=== PATIENT | female | born 1955 | race Caucasian/White ===

== ENCOUNTER 2018-12-03 10:57 | Inpatient (IN) | payer OTHER ==
[2018-12-03] MEDS ORDERED: KETOROLAC 60 MG/2 ML VIAL IM STA (11:26)
--- NOTE | 2018-12-03 11:37 | ED ---
General Adult HPI - General Chief complaint: Fall Stated complaint: FALL, RT ELBOW/SHOULDER INJURY Time Seen by Provider: 12/03/18 11:00 Source: patient, RN notes reviewed Mode of arrival: wheelchair Limitations: no limitations - History of Present Illness Initial comments: This is a 63-year-old female presents emergency Department complaining of right posterior thoracic pain as well as right elbow and shoulder pain. Patient states she was on one step of a stepladder when she was trying to get on the counter she fell from stepladder onto her back. Patient denies hitting her head denies any headache denies any neck injury patient denies any numbness or weakness. Patient states the posterior thoracic pain is worse with deep breathing or twisting. Patient states she has full range of motion of her elbow but it does hurt on the lateral aspect. Patient states the lateral aspect of her humerus also hurts. Patient denies any abdominal pain. Patient denies any lower extremity pain. Patient denies any pain to the left extremity. - Related Data Home Medications Medication Instructions Recorded Confirmed Albuterol Inhaler [Ventolin Hfa 2 puff INHALATION RT-Q8H 12/03/18 12/03/18 Inhaler] Budesonide/Formoterol Fumarate 2 puff INHALATION RT-BID 12/03/18 12/03/18 [Symbicort 160-4.5 Mcg Inhaler] Lisinopril-Hctz 20-25 mg 1 tab PO DAILY 12/03/18 12/03/18 [Zestoretic 20-25] Sertraline [Zoloft] 25 mg PO DAILY 12/03/18 12/03/18 Allergies Allergy/AdvReac Type Severity Reaction Status Date / Time theophylline Allergy Severe headache Verified 12/03/18 11:21 Review of Systems ROS Statement: Those systems with pertinent positive or pertinent negative responses have been documented in the HPI. ROS Other: All systems not noted in ROS Statement are negative. Past Medical History Past Medical History: Asthma, Hypertension History of Any Multi-Drug Resistant Organisms: None Reported Past Surgical History: No Surgical Hx Reported Past Psychological History: Depression Smoking Status: Never smoker Past Alcohol Use History: Rare Past Drug Use History: None Reported General Exam - General Exam Comments Initial Comments: GENERAL: Patient is well-developed and well-nourished. Patient is nontoxic and well- hydrated and is in mild distress. ENT: Neck is soft and supple. No significant lymphadenopathy is noted. Oropharynx is clear. Moist mucous membranes. Neck has full range of motion without eliciting any pain. Patient has no palpable neck tenderness EYES: The sclera were anicteric and conjunctiva were pink and moist. Extraocular movements were intact and pupils were equal round and reactive to light. Eyelids were unremarkable. PULMONARY: Unlabored respirations. Good breath sounds bilaterally. No audible rales rhonchi or wheezing was noted. CARDIOVASCULAR: There is a regular rate and rhythm without any murmurs gallops or rubs. Femoral pulses are equal bilaterally ABDOMEN: Soft and nontender with normal bowel sounds. No palpable organomegaly was noted. There is no palpable pulsatile mass. SKIN: Skin is clear with no lesions or rashes and otherwise unremarkable. NEUROLOGIC: Patient is alert and oriented x3. Cranial nerves II through XII are grossly intact. Motor and sensory are also intact. Normal speech, volume and content. Symmetrical smile. MUSCULOSKELETAL: Patient has pain on the lateral aspect of the elbow and shoulder patient also has palpable pain of the posterior thoracic region just below the scapula. LYMPHATICS: No significant lymphadenopathy is noted PSYCHIATRIC: Normal psychiatric evaluation. Limitations: no limitations Course Vital Signs 12/03/18 11:00 Temperature 97.8 F Pulse Rate 67 Respiratory 18 Rate Blood Pressure 113/65 O2 Sat by Pulse 98 Oximetry Procedures - Chest Tube Insertion Consent Obtained: verbal consent Side of Procedure: right Placed on monitor/pulse oximetry: Yes Local Anesthesia: Lidocaine 1% (Serevent) Insertion Site: Midaxillary Scalpel: #11 Open into Pleural Space Using: Other (Serevent trocar) Sutured in Place: No Attached to Suction: No Patient Tolerated Procedure: well Complications: Pain Medical Decision Making - Medical Decision Making Patient's x-ray of the elbow is negative. Patient's chest x-ray shows a pneumothorax about 20-30% with a posterior displaced rib fracture Shoulder x-ray shows no acute abnormality I spoke with Joseph Uriarte and he agreed that A for about would be sufficient in this case. I spoke with Dr. Mendoza he wanted the patient admitted with CT consult Disposition Clinical Impression: Pneumothorax, Rib fracture Disposition: ADMITTED IP TO THIS HOSP Referrals: Neela Stewart MD [Primary Care Provider] - 1-2 days Time of Disposition: 16:12
--- NOTE | 2018-12-03 12:47 | XR ---
EXAMINATION TYPE: XR ribs RT w pa chest xray , 5 VIEWS DATE OF EXAM ORDERED: 12/03/2018 HISTORY: Pain. COMPARISON: None. FINDINGS: Heart size upper limits of normal. The lungs are clear. Pleural spaces are clear. There is a moderately displaced fracture the posterior aspect of the fifth rib. There is a slight contour abn ormality the sixth rib but a definite cortical break is not seen. IMPRESSION: 1. BORDERLINE CARDIOMEGALY. 2. MODERATELY DISPLACED FRACTURE OF THE RIGHT FIFTH RIB.
--- NOTE | 2018-12-03 12:49 | XR ---
EXAMINATION TYPE: XR shoulder complete RT , 3 VIEWS DATE OF EXAM ORDERED: 12/03/2018 HISTORY: Pain. COMPARISON: None. FINDINGS: There are mild degenerative changes in the right AC joint. There is a moderately displaced fracture the right fifth rib posteriorly. There is also slightly contracted abnormality of the fourt h rib but a definite cortical fracture is not seen. IMPRESSION: 1. NO ACUTE FRACTURE OR DISLOCATION ABOUT THE SHOULDER. 2. MILD DEGENERATIVE CHANGE. 3. RIGHT FIFTH RIB FRACTURE.
--- NOTE | 2018-12-03 12:50 | XR ---
EXAMINATION TYPE: XR elbow complete RT , 3 VIEWS DATE OF EXAM ORDERED: 12/03/2018 HISTORY: Pain. COMPARISON: None. FINDINGS: No fracture, dislocation or elbow joint effusion is seen. IMPRESSION: NO ACUTE OSSEOUS LESION.
[2018-12-03] MEDS ORDERED: HYDROmorphone 1 MG/ML 1 ML SYRINGE IM STA (13:38)
[2018-12-03] MEDS ORDERED: ONDANSETRON ODT 4 MG TAB PO STA (13:38)
[2018-12-03] MEDS ORDERED: HYDROmorphone 1 MG/ML 1 ML SYRINGE IVP STA (13:56)
[2018-12-03] MEDS ORDERED: ONDANSETRON 4 MG/2 ML VIAL IVP STA ×2 (13:56→16:49)
[2018-12-03] MEDS ORDERED: LIDOCAINE 1% INJ 10MG/ML (20 ML MDV) SQ ONE (13:57)
[2018-12-03] MEDS ORDERED: SODIUM CHLORIDE 0.9% 1,000 ML IV ONE (16:47)
[2018-12-03] MEDS ORDERED: HYDROmorphone 0.5 MG/0.5 ML SYRINGE IVP PRN (16:49)
--- NOTE | 2018-12-03 16:56 | XR ---
EXAMINATION TYPE: XR chest 1V portable DATE OF EXAM: 12/03/2018 COMPARISON: NONE HISTORY: Asthma TECHNIQUE: Single frontal view of the chest is obtained. FINDINGS: Heart and mediastinum are normal. Lungs are clear. Diaphragm is normal. There is right-faina ed chest tube. There is probably a tiny right apical pneumothorax. IMPRESSION: Small right apical pneumothorax decreased compared to exam earlier today. Normal heart.
[2018-12-03 19:18] LABS: Basophils # (A) 0.1 k/uL (0-0.2); Basophils % (A) 0 %; Eosinophils # (A) 0.1 k/uL (0-0.7); Eosinophils % (A) 1 %; HCT 47.1 % (34.0-46.0); HGB 15.2 gm/dL (11.4-16.0); Lymphocytes # (A) 0.8 k/uL (1.0-4.8); Lymphocytes % (A) 5 %; MCH 28.8 pg (25.0-35.0); MCHC 32.2 g/dL (31.0-37.0); MCV 89.4 fL (80.0-100.0); Mean Platelet Volume 8.7; Monocytes # (A) 0.6 k/uL (0-1.0); Monocytes % (A) 3 %; Neutrophils # (A) 16.6 k/uL (1.3-7.7); Neutrophils % (A) 91 %; Platelet Count 358 k/uL (150-450); RBC 5.27 m/uL (3.80-5.40); RDW 13.6 % (11.5-15.5); WBC 18.2 k/uL (3.8-10.6)
[2018-12-03 19:28] LABS: ALT 36 U/L (9-52); AST 30 U/L (14-36); Albumin 4.7 g/dL (3.5-5.0); Alkaline Phosphatase 77 U/L (38-126); Anion Gap 10 mmol/L; Blood Urea Nitrogen 23 mg/dL (7-17); Calcium 10.3 mg/dL (8.4-10.2); Carbon Dioxide 28 mmol/L (22-30); Chloride 104 mmol/L (98-107); Glucose 96 mg/dL (74-99); Potassium 4.3 mmol/L (3.5-5.1); Sodium 142 mmol/L (137-145); Total Bilirubin 0.6 mg/dL (0.2-1.3); Total Protein 7.7 g/dL (6.3-8.2)
[2018-12-03] MEDS: HYDROcodone/APAP 5-325MG 1 EACH TAB PO PRN (20:00)
[2018-12-03] MEDS: SYMBICORT 160-4.5 MCG INHALER INHALATION SCH (21:27)
[2018-12-03] MEDS ORDERED: ALBUTEROL NEBULIZED 2.5 MG/3 ML INHALATION PRN (22:30)
[2018-12-03] MEDS: LIDOCAINE 5% PATCH TOPICAL SCH (23:29)
[2018-12-03] MEDS: HEPARIN SODIUM,PORCINE 5,000 UNIT/ML 1 ML VIAL SQ SCH (23:29)
[2018-12-04] MEDS ORDERED: ALBUTEROL NEBULIZED 2.5 MG/3 ML INHALATION SCH
[2018-12-04] MEDS: HYDROcodone/APAP 5-325MG 1 EACH TAB PO PRN ×2 (03:44→11:00)
[2018-12-04] MEDS: ALBUTEROL NEBULIZED 2.5 MG/3 ML INHALATION SCH ×3 (07:47→19:41)
[2018-12-04] MEDS: SYMBICORT 160-4.5 MCG INHALER INHALATION SCH ×2 (07:47→19:41)
--- NOTE | 2018-12-04 08:23 | XR ---
EXAMINATION TYPE: XR chest 1V portable DATE OF EXAM: 12/04/2018 HISTORY: Right pneumothorax. REFERENCE: Previous study dated 12/03/2018. FINDINGS: A right pleural drain remains in place. There continues to be a small, apical pneumothorax on the right. There is a small amount of subcutaneous emphysema on the right. Lungs otherwise clear. Pleural spaces are clear. The heart is mildly prominent. IMPRESSION: SMALL, RESIDUAL RIGHT APICAL PNEUMOTHORAX. THIS IS APPROXIMATELY 10% BY VOLUME.
[2018-12-04] MEDS: SERTRALINE 25 MG TAB PO SCH (08:33)
[2018-12-04] MEDS: LISINOPRIL-HCTZ 20-25 MG 1 EACH TAB PO SCH (08:33)
[2018-12-04] MEDS: HEPARIN SODIUM,PORCINE 5,000 UNIT/ML 1 ML VIAL SQ SCH ×3 (08:33→23:51)
--- NOTE | 2018-12-04 09:34 | P.GSHP ---
History of Present Illness H&P Date: 12/04/18 63-year-old female presented to the emergency department with right-sided chest pain after a recent fall. The patient states that she was painting in her house and was attempting to step on a step stool and fell backwards onto her right side and right arm. She states that due to the severe pain, she presented to the emergency department. She denied any loss of consciousness and denies hitting her head. Other than the right chest and right elbow, she also complained of right shoulder pain. She also complained of some shortness of breath. She denied any abdominal pain. She denied any pain to the lower extremities. She was ambulating well after her fall. On workup in the emergency department, the patient was found to have a right-sided pneumothorax with no obvious fracture of the right shoulder or elbow. The emergency department physician did consult with cardiothoracic surgery and plan was for placement of ThoraVent that was placed by the emergency room physician. Repeat chest x-ray after placement did reveal some resolution of the pneumothorax with a small residual apical pneumothorax. Currently, the patient states her elbow pain is improving and she is able to move her upper extremity without a significant amount of pain. She states that her shortness of breath has i mproved. She has no additional complaints at this time. - Review of Systems All systems: negative Past Medical History Past Medical History: Asthma, Hypertension History of Any Multi-Drug Resistant Organisms: None Reported Past Surgical History: No Surgical Hx Reported Past Psychological History: Depression Smoking Status: Never smoker Past Alcohol Use History: Rare Past Drug Use History: None Reported - Past Family History Father Family Medical History: Hypertension Medications and Allergies Home Medications Medication Instructions Recorded Confirmed Type Albuterol Inhaler [Ventolin Hfa 2 puff INHALATION RT-Q8H 12/03/18 12/03/18 History Inhaler] Budesonide/Formoterol Fumarate 2 puff INHALATION RT-BID 12/03/18 12/03/18 History [Symbicort 160-4.5 Mcg Inhaler] Lisinopril-Hctz 20-25 mg 1 tab PO DAILY 12/03/18 12/03/18 History [Zestoretic 20-25] Sertraline [Zoloft] 25 mg PO DAILY 12/03/18 12/03/18 History Allergies Allergy/AdvReac Type Severity Reaction Status Date / Time theophylline Allergy Severe headache Verified 12/03/18 11:21 Surgical - Exam Osteopathic Statement: *. No significant issues noted on an osteopathic structural exam other than those noted in the History and Physical/Consult. Vital Signs Temp Pulse Resp BP Pulse Ox 97.8 F 67 18 113/65 98 12/03/18 11:00 12/03/18 11:00 12/03/18 11:00 12/03/18 11:00 12/03/18 11:00 - General well nourished, no distress - Eyes PERRL, normal ocular movement - ENT normal pinna, normal nares, normal mucosa, no hearing loss - Neck no masses, trachea midline, no lymphadectomy - Respiratory normal expansion, normal respiratory effort, clear to auscultation - Cardiovascular Rhythm: regular Heart Sounds: normal: S1, S2 - Abdomen Abdomen: soft, non tender, no guarding, no rigid, no rebound, no distended - Integumentary no rash, no growths - Neurologic normal coordination, normal sensation - Musculoskeletal normal gait - Psychiatric oriented to time, oriented to person, oriented to place, speech is normal Results - Labs 12/03/18 14:06 12/03/18 14:06 Abnormal Lab Results - Last 24 Hours (Table) 12/03/18 12/03/18 Range/Units 14:06 14:06 WBC 18.2 H (3.8-10.6) k/uL Hct 47.1 H (34.0-46.0) % Neutrophils # 16.6 H (1.3-7.7) k/uL Lymphocytes # 0.8 L (1.0-4.8) k/uL BUN 23 H (7-17) mg/dL Calcium 10.3 H (8.4-10.2) mg/dL Diabetes panel 12/03/18 Range/Units 14:06 Sodium 142 (137-145) mmol/L Potassium 4.3 (3.5-5.1) mmol/L Chloride 104 (98-107) mmol/L Carbon Dioxide 28 (22-30) mmol/L BUN 23 H (7-17) mg/dL Creatinine 0.71 (0.52-1.04) mg/dL Glucose 96 (74-99) mg/dL Calcium 10.3 H (8.4-10.2) mg/dL AST 30 (14-36) U/L ALT 36 (9-52) U/L Alkaline Phosphatase 77 (38-126) U/L Total Protein 7.7 (6.3-8.2) g/dL Albumin 4.7 (3.5-5.0) g/dL Calcium panel 12/03/18 Range/Units 14:06 Calcium 10.3 H (8.4-10.2) mg/dL Albumin 4.7 (3.5-5.0) g/dL Pituitary panel 12/03/18 Range/Units 14:06 Sodium 142 (137-145) mmol/L Potassium 4.3 (3.5-5.1) mmol/L Chloride 104 (98-107) mmol/L Carbon Dioxide 28 (22-30) mmol/L BUN 23 H (7-17) mg/dL Creatinine 0.71 (0.52-1.04) mg/dL Glucose 96 (74-99) mg/dL Calcium 10.3 H (8.4-10.2) mg/dL Adrenal panel 12/03/18 Range/Units 14:06 Sodium 142 (137-145) mmol/L Potassium 4.3 (3.5-5.1) mmol/L Chloride 104 (98-107) mmol/L Carbon Dioxide 28 (22-30) mmol/L BUN 23 H (7-17) mg/dL Creatinine 0.71 (0.52-1.04) mg/dL Glucose 96 (74-99) mg/dL Calcium 10.3 H (8.4-10.2) mg/dL Total Bilirubin 0.6 (0.2-1.3) mg/dL AST 30 (14-36) U/L ALT 36 (9-52) U/L Alkaline Phosphatase 77 (38-126) U/L Total Protein 7.7 (6.3-8.2) g/dL Albumin 4.7 (3.5-5.0) g/dL Assessment and Plan (1) Pneumothorax Narrative/Plan: Cardiothoracic surgery consult has been placed. Thoravent is in place and does have a notable air leak this morning. Recommendations for further management of pneumothorax per cardiothoracic surgery. Continue incentive spirometry. Current Visit: Yes Status: Acute Code(s): J93.9 - PNEUMOTHORAX, UNSPECIFIED SNOMED Code(s): 49275255 (2) Rib fracture Narrative/Plan: Pain control with narcotics, Toradol, Robaxin, Lidoderm patch. I will place a consult to anesthesia for possible nerve block. Continue incentive spirometry. Current Visit: Yes Status: Acute Code(s): S22.39XA - FRACTURE OF ONE RIB, UNSP SIDE, INIT FOR CLOS FX SNOMED Code(s): 12481195
[2018-12-04] MEDS: KETOROLAC 30 MG/ML 1 ML VIAL IVP SCH ×3 (12:51→23:51)
[2018-12-04] MEDS: METHOCARBAMOL 500 MG TAB PO SCH ×3 (12:52→21:16)
--- NOTE | 2018-12-04 14:09 | P.GSCN ---
History of Present Illness Consult date: 12/04/18 Reason for Consult: Status post fall from standing with trauma to her right chest and subsequent right pneumothorax. Requesting physician: Duane Chavarria History of present illness: This is a 71-year-old female patient who is followed by Dr. Neela Stewart on an outpatient basis. She has a past medical history significant for asthma, hypertension and depression. Yesterday while attempting to paint her kitchen, she stepped up on a step stool and proceeded to stand on her kitchen counter when she slipped off of the kitchen counter and fell backwards hitting her right side and right elbow. She was able to sit up and use her phone to call 911. She denies any head trauma, loss of consciousness loss of bowel or bladder function, although she reports she did have some complaints of shortness of breath, pain to her right side and back and nausea after the fall. Subsequently, she presented to the emergency department here at [facility] via EMS. An x-ray of her right arm was completed which demonstrated no acute osseous lesion, and a chest x-ray was completed which showed borderline cardiomegaly, moderately displaced fracture of the right fifth rib and a 15-20% right pneumothorax. Due to the right pneumothorax emergency room physician Dr. Chavarria placed a right Thoravent chest tube. Post-Thoravent placement a repeat chest x-ray was completed which demonstrate some resolution of the pneumothorax with a residual small right apical pneumothorax. Due to the patient's right pneumothorax a consult was placed to Dr. Kevin Harvey from cardiothoracic surgery for further evaluation and recommendations. Currently the patient is sitting up to the bedside chair. She remains complaining of some pain to her right lateral chest and right elbow. She is in no acute distress. Currently she is on 1 L nasal cannula with oxygen saturations 97%. Right Thoravent chest tube remains in place with air leak present. She denies any complaints of shortness of breath. Her chest x-ray this morning continues to show a small residual right apical pneumothorax less than 10%. Review of Systems A 14 point review systems was completed and was negative except as mentioned in HPI Past Medical History Past Medical History: Asthma, Hypertension History of Any Multi-Drug Resistant Organisms: None Reported Additional Past Surgical History / Comment(s): History of endometrial ablation Past Psychological History: Depression Smoking Status: Never smoker Past Alcohol Use History: Rare Past Drug Use History: None Reported - Past Family History Father Family Medical History: Hypertension Additional Family Medical History / Comment(s): Parkinson's Mother Family Medical History: Respiratory Disorder (Pulmonary fibrosis) Medications and Allergies Home Medications Medication Instructions Recorded Confirmed Type Albuterol Inhaler [Ventolin Hfa 2 puff INHALATION RT-Q8H 12/03/18 12/03/18 History Inhaler] Budesonide/Formoterol Fumarate 2 puff INHALATION RT-BID 12/03/18 12/03/18 History [Symbicort 160-4.5 Mcg Inhaler] Lisinopril-Hctz 20-25 mg 1 tab PO DAILY 12/03/18 12/03/18 History [Zestoretic 20-25] Sertraline [Zoloft] 25 mg PO DAILY 12/03/18 12/03/18 History Allergies Allergy/AdvReac Type Severity Reaction Status Date / Time theophylline Allergy Severe headache Verified 12/03/18 11:21 Surgical - Exam Vital Signs Temp Pulse Resp BP Pulse Ox 97.8 F 67 18 113/65 98 12/03/18 11:00 12/03/18 11:00 12/03/18 11:00 12/03/18 11:00 12/03/18 11:00 - General well developed, well nourished, no distress, moderate pain (The right chest and right elbow), obese - Eyes PERRL, normal ocular movement - ENT normal pinna, normal nares, normal mucosa, no hearing loss, no congestion - Neck Neck is supple no lymphadenopathy. no masses, no bruits, trachea midline, no venous distension - Respiratory Essentially clear throughout, few scattered crackles to her bilateral bases. Respirations are symmetrical and nonlabored. Oxygen saturation are 97% on 1 L nasal cannula. - Cardiovascular Regular rhythm and rate. S1 and S2 present, negative for S3, gallop or murmur. No edema present. - Abdomen Abdomen is soft, nontender and nondistended. Active bowel sounds all 4 abdominal quadrants. No guarding or rigidity. No organomegaly. - Genitourinary Deferred - Rectum Deferred - Integumentary Ecchymosis and swelling to her right elbow. no rash, no growths - Neurologic normal coordination, normal sensation - Musculoskeletal normal gait, normal posture - Psychiatric oriented to time, oriented to person, oriented to place, speech is normal, memory intact Results - Labs 12/03/18 14:06 12/03/18 14:06 Abnormal Lab Results - Last 24 Hours (Table) 12/03/18 12/03/18 Range/Units 14:06 14:06 WBC 18.2 H (3.8-10.6) k/uL Hct 47.1 H (34.0-46.0) % Neutrophils # 16.6 H (1.3-7.7) k/uL Lymphocytes # 0.8 L (1.0-4.8) k/uL BUN 23 H (7-17) mg/dL Calcium 10.3 H (8.4-10.2) mg/dL Diabetes panel 12/03/18 Range/Units 14:06 Sodium 142 (137-145) mmol/L Potassium 4.3 (3.5-5.1) mmol/L Chloride 104 (98-107) mmol/L Carbon Dioxide 28 (22-30) mmol/L BUN 23 H (7-17) mg/dL Creatinine 0.71 (0.52-1.04) mg/dL Glucose 96 (74-99) mg/dL Calcium 10.3 H (8.4-10.2) mg/dL AST 30 (14-36) U/L ALT 36 (9-52) U/L Alkaline Phosphatase 77 (38-126) U/L Total Protein 7.7 (6.3-8.2) g/dL Albumin 4.7 (3.5-5.0) g/dL Calcium panel 12/03/18 Range/Units 14:06 Calcium 10.3 H (8.4-10.2) mg/dL Albumin 4.7 (3.5-5.0) g/dL Pituitary panel 12/03/18 Range/Units 14:06 Sodium 142 (137-145) mmol/L Potassium 4.3 (3.5-5.1) mmol/L Chloride 104 (98-107) mmol/L Carbon Dioxide 28 (22-30) mmol/L BUN 23 H (7-17) mg/dL Creatinine 0.71 (0.52-1.04) mg/dL Glucose 96 (74-99) mg/dL Calcium 10.3 H (8.4-10.2) mg/dL Adrenal panel 12/03/18 Range/Units 14:06 Sodium 142 (137-145) mmol/L Potassium 4.3 (3.5-5.1) mmol/L Chloride 104 (98-107) mmol/L Carbon Dioxide 28 (22-30) mmol/L BUN 23 H (7-17) mg/dL Creatinine 0.71 (0.52-1.04) mg/dL Glucose 96 (74-99) mg/dL Calcium 10.3 H (8.4-10.2) mg/dL Total Bilirubin 0.6 (0.2-1.3) mg/dL AST 30 (14-36) U/L ALT 36 (9-52) U/L Alkaline Phosphatase 77 (38-126) U/L Total Protein 7.7 (6.3-8.2) g/dL Albumin 4.7 (3.5-5.0) g/dL - Imaging Chest x-ray: report reviewed, image reviewed Assessment and Plan Assessment: 1. Status post fall from standing with right fifth rib fracture. 2. Right pneumothorax, status post right Thoravent placement. 3. History of hypertension 4. History of asthma. 5. History of depression. Plan: The patient was seen and examined on the floor S. medical surgical unit. Her chart and diagnostics were reviewed. Her case was discussed with Dr. Kevin Harvey from cardiothoracic surgery. Per her x-ray today she has a less than 10% residual right apical pneumothorax. Her right anterior chest Thoravent is showing an intermittent air leak. The patient is concerned that she has no insurance, social work has been consulted. No surgical intervention is recommended at this time. We will continue to monitor the right anterior chest Thoravent for air leak. Incentive spirometry has been ordered and we will encourage use of the incentive spirometry every hour while awake. We have added Toradol to her pain management regimen. Increase activity as tolerated. Wean oxygen as tolerated. Anesthesia has been consulted by Dr. Mendoza for possible nerve block. We will continue to monitor her daily chest x-rays. Thank you for this consult and we'll look for to working with you in the care of your patient. Time with Patient: Greater than 30
[2018-12-04] MEDS: LIDOCAINE 5% PATCH TOPICAL SCH (21:16)
[2018-12-05] MEDS: KETOROLAC 30 MG/ML 1 ML VIAL IVP SCH ×2 (05:17→12:14)
[2018-12-05 06:54] LABS: HCT 39.2 % (34.0-46.0); HGB 12.7 gm/dL (11.4-16.0); MCH 28.3 pg (25.0-35.0); MCHC 32.5 g/dL (31.0-37.0); MCV 87.1 fL (80.0-100.0); Mean Platelet Volume 7.1; Platelet Count 226 k/uL (150-450); WBC 6.6 k/uL (3.8-10.6)
[2018-12-05 07:05] LABS: Anion Gap 3 mmol/L; Blood Urea Nitrogen 15 mg/dL (7-17); Calcium 8.9 mg/dL (8.4-10.2); Carbon Dioxide 30 mmol/L (22-30); Chloride 107 mmol/L (98-107); Glucose 93 mg/dL (74-99); Potassium 3.8 mmol/L (3.5-5.1); Sodium 140 mmol/L (137-145)
[2018-12-05] MEDS: SYMBICORT 160-4.5 MCG INHALER INHALATION SCH (07:50)
[2018-12-05] MEDS: ALBUTEROL NEBULIZED 2.5 MG/3 ML INHALATION SCH ×2 (07:50→13:04)
--- NOTE | 2018-12-05 07:59 | XR ---
EXAMINATION TYPE: XR chest 1V portable DATE OF EXAM: 12/05/2018 Comparison: 12/04/2018 Clinical History: 63-year-old female Right pneumothorax Findings: Right-sided Thoravent is in place. Mild associated subcutaneous emphysema on the right. A subtle line ar and is seen at the right apex that could be artifactual or could represent a trace residual pneumo thorax pelvis slightly smaller from the prior exam. Peripheral left base underpenetrated and not well assessed. Heart normal size. Impression: Right-sided Thoravent in place. Suspect a trace residual right apical pneumothorax, slightly smaller from prior.
[2018-12-05 08:02] VITALS: RESP 16
[2018-12-05] MEDS: SERTRALINE 25 MG TAB PO SCH (08:26)
[2018-12-05] MEDS: LISINOPRIL-HCTZ 20-25 MG 1 EACH TAB PO SCH (08:26)
[2018-12-05] MEDS: METHOCARBAMOL 500 MG TAB PO SCH ×2 (08:26→12:15)
--- NOTE | 2018-12-05 08:32 | P.PAINCN ---
History of Present Illness - Reason for Consult Consult date: 12/05/18 Rib fracture - History of Present Illness Ryan is a 63 -year-old female who presented to the hospital after falling in her kitchen. She was using a step ladder and fell off and hit her chest counter. She was seen in the emergency room and was diagnosed with a rib fracture and pneumothorax. At that time a chest tube was placed to decompress the pneumothorax. At this time she continues to have pain along the side of the rib fractures as well as where the chest tube was placed. She complains of pain radiating across the back to that side. She denies any neck pain. She denies any numbness or tingling in her hands. She denies any lower extremity weakness or bowel or bladder incontinence. She is currently on pain medications including opiates, muscle relaxants, as well as lidocaine patches. She continues to have pain. Consulting surgeon is requesting a potential nerve block or an epidural catheter. Past Medical History Past Medical History: Asthma, Hypertension History of Any Multi-Drug Resistant Organisms: None Reported Past Surgical History: No Surgical Hx Reported Additional Past Surgical History / Comment(s): History of endometrial ablation Past Psychological History: Depression Smoking Status: Never smoker Past Alcohol Use History: Rare Past Drug Use History: None Reported - Past Family History Father Family Medical History: Hypertension Additional Family Medical History / Comment(s): Parkinson's Mother Family Medical History: Respiratory Disorder (Pulmonary fibrosis) Medications and Allergies Home Medications Medication Instructions Recorded Confirmed Type Albuterol Inhaler [Ventolin Hfa 2 puff INHALATION RT-Q8H 12/03/18 12/03/18 History Inhaler] Budesonide/Formoterol Fumarate 2 puff INHALATION RT-BID 12/03/18 12/03/18 History [Symbicort 160-4.5 Mcg Inhaler] Lisinopril-Hctz 20-25 mg 1 tab PO DAILY 12/03/18 12/03/18 History [Zestoretic 20-25] Sertraline [Zoloft] 25 mg PO DAILY 12/03/18 12/03/18 History Allergies Allergy/AdvReac Type Severity Reaction Status Date / Time theophylline Allergy Severe headache Verified 12/03/18 11:21 Physical Exam Vitals: Vital Signs Temp Pulse Pulse Resp BP Pulse Ox 12/05/18 08:05 72 12/05/18 07:50 68 94 L 04/15/19 07:00 97.6 F 62 16 139/70 94 L 12/05/18 06:28 60 20 149/72 96 12/05/18 04:22 18 12/05/18 01:36 98.6 F 66 16 125/72 94 L 12/05/18 00:10 16 12/04/18 20:00 16 12/04/18 19:33 98.6 F 71 16 121/75 95 12/04/18 15:00 98.2 F 77 16 96/59 93 L 12/04/18 13:43 74 12/04/18 13:29 72 Intake and Output 12/04/18 12/05/18 12/05/18 22:59 06:59 14:59 Intake Total 475 Balance 475 Intake: Oral 475 Other: Voiding Method Toilet # Voids 1 1 PHYSICAL EXAM: Constitutional: Awake and alert mild distress, siting in a chair at the bedside Cardiovascular exam: Regular rate, no lower extremity edema, palpable pulses bilaterally Respiratory exam: No audible wheezing. Chest tube is in place on right ant chest wall. Abdominal exam: Soft nontender Muscular skeletal exam: - Cervical spine: Nontender to palpation bilaterally. Range of motion is not limited. drug safety data management specialist strength 5/5, Cardona negative - Lumbar spine: There is no tenderness or changes of the lumbar spine. There is tenderness palpation over the thoracic rib cage. There is evidence of bruising over the rib cage. There is no erythema or fluctuance. There is no Step-off of the cervical thoracic or lumbar spine. Neuro exam: Normal sensation bilateral upper and lower extremities. Deep tendon reflexes are 2+ bilaterally. Cardona's is negative Psychiatric exam: Cooperative, good insight Results CBC & Chem 7: 12/05/18 06:31 12/05/18 06:31 Assessment and Plan Assessment: #1 fracture #2 pneumothorax #3 intercostal neuritis Plan: After discussion with the patient examination of the patient and review of her medical records. I offer the patient to continue with her current medications and as an interventional subsidy we offered her a thoracic epidural catheter to be placed. Also discussed the potential to a single shot injections. Patient reports she does not want to stay in the hospital for more than today and really wants to go home today so the epidural catheter may not be a good option for her. I discussed with her that she still has a port in her chest and she may not be a good candidate go home this time. I offered her a single shot injection but she reports she like to wait on that as well I I did discuss her that we don't do this morning unlikely to be done today and she will was willing to accept that. I did discuss this with the nurse taking care of the patient today. He can go back on to her subcu heparin since she does not want to have the injections done today. If she changes her mind tomorrow as well as subcu heparin for at least 6 hours prior to the scheduled procedure time Time with Patient: Less than 30 PQRS Measure Charge Sheet PQRS Narrative: Smoking Status Never smoker Do You Want the Pneumonia No Vaccine AT THIS TIME? Blood Pressure [Left Arm] 139/70 Blood Pressure 124/80 Pain Intensity [Chest] 7 Pain Intensity 6 Pain Scale Used Numeric (1 - 10) Scale Used Non Verbal Pain Indicator Home Medications: Ambulatory Orders Albuterol Inhaler [Ventolin Hfa Inhaler] 2 puff INHALATION RT-Q8H 12/03/18 Budesonide/Formoterol Fumarate [Symbicort 160-4.5 Mcg Inhaler] 2 puff INHALATION RT-BID 12/03/18 Lisinopril-Hctz 20-25 mg [Zestoretic 20-25] 1 tab PO DAILY 12/03/18 Sertraline [Zoloft] 25 mg PO DAILY 12/03/18
[2018-12-05] MEDS: HEPARIN SODIUM,PORCINE 5,000 UNIT/ML 1 ML VIAL SQ SCH (10:54)
--- NOTE | 2018-12-05 13:46 | P.PN ---
Subjective Progress Note Date: 12/05/18 Principal diagnosis: Status post fall from standing with trauma to her right chest with a moderately displaced fracture of her right fifth rib and subsequent right pneumothorax, hi story of asthma, hypertension and depression. This is a 63-year-old female patient who presented to emergency department here at [facility] on 12/03/2018 after having a fall from standing. While in the emergency department she underwent a chest x-ray which demonstrated a moderately displaced fracture of her right fifth rib and a 15-20% right pneumothorax. Subsequently a Thoravent chest tube was placed by the ER physician and she was committed to the hospital for further workup and evaluation. She is currently sitting up to the bedside chair in no acute distress. Currently she rates her pain 5 out of 10 on the pain scale to her right lateral chest. A right anterior chest Thoravent remains in place with no airleak present at this time. Oxygen saturations are 96% on room air and she is achieving 2000 ml on her incentive spirometry. Objective - Vital Signs Vital signs: Vital Signs Temp 97.6 F 12/05/18 07:00 Pulse 72 12/05/18 08:05 Resp 16 12/05/18 07:00 BP 139/70 12/05/18 07:00 Pulse Ox 94 L 12/05/18 07:50 Intake & Output 12/04/18 12/05/18 12/05/18 18:59 06:59 18:59 Intake Total 640 475 Balance 640 475 Intake: Oral 640 475 Other: Voiding Method Toilet # Voids 3 1 - Constitutional General appearance: Present: cooperative, no acute distress, obese - Respiratory Details: Lungs sounds essentially clear throughout, diminished to her right lower lobe. Respirations are symmetrical and nonlabored. Oxygen saturation is are 96 percent on room air. She is achieving 2000 mL on her incentive spirometry. Right anterior chest Thoravent in place, no air leak is present. - Cardiovascular Details: Regular rhythm and rate. S1 and S2 present, negative for S3, or gallop. 2/6 systolic murmur heard to her right sternal border. No edema present. - Gastrointestinal Gastrointestinal Comment(s): Abdomen is soft, nontender and nondistended. Active bowel sounds to all 4 abdominal quadrants. No guarding or rigidity. No organomegaly. - Genitourinary Genitourinary Comment(s): Voiding clear yellow urine. - Integumentary Integumentary Comment(s): Skin is warm and dry. No clubbing or cyanosis is present. No rash is present. Swelling and ecchymosis to her right elbow. - Neurologic Neurologic: Present: CNII-XII intact - Musculoskeletal Musculoskeletal Comment(s): Guarded movements to her right arm. Musculoskeletal: Present: gait normal, strength equal bilaterally - Psychiatric Psychiatric: Present: A&O x's 3, appropriate affect, intact judgment & insight - Allied health notes Allied health notes reviewed: nursing - Labs CBC & Chem 7: 12/05/18 06:31 12/05/18 06:31 - Imaging and Cardiology Chest x-ray: report reviewed, image reviewed Assessment and Plan Assessment: 1. Status post fall from standing with right fifth rib fracture. 2. Right pneumothorax, status post right Thoravent placement. 3. History of hypertension 4. History of asthma. 5. History of depression. Plan: 1. We will remove her Thoravent chest tube today, follow-up with a chest x-ray within 2 hours post Thoravent removal. If there is no sizable pneumothorax she will be cleared to be discharged home from the cardiothoracic standpoint. 2. Anesthesia was consulted noted and appreciated. 3. Encourage use of her incentive spirometry every hour while awake. 4. Pain management per current as needed orders. 5. Increase activity as tolerated. 6. More recommendations to follow based on patient's clinical course. Thoravent chest tube removed at 1310 today without incident. Folded 4 x 4 gauze to cover and secured with tape. Time with Patient: Greater than 30
[2018-12-05 14:15] VITALS: BP 125/70; PULSE 83; TEMP 97.9
--- NOTE | 2018-12-05 16:50 | P.DS ---
Providers Date of admission: 12/03/18 16:49 Attending physician: Matteo Mendoza DO Consults: 12/03/18 16:47 Consult Physician Urgent Consulting Provider: Rakan Sanders Consult Reason/Comments: Pneumothorax Do you want consulting provider notified?: Yes 12/04/18 09:35 Consult to Anesthesia Routine Consulting Provider: Anesthesia,Services Consult Reason/Comments: rib fracture pain control Primary care physician: Neela Stewart - Discharge Diagnosis(es) (1) Pneumothorax Current Visit: Yes Status: Acute (2) Rib fracture Current Visit: Yes Status: Acute Hospital Course: 63-year-old female was admitted to the hospital after a traumatic pneumothorax of the right side. Thoravent was placed by the ER physician and cardiothoracic surgery was consultation from the ER. During her admission, on day 1, the patient was noted to continue to have an air leak from the thoravent. X-ray also showed a small right-sided pneumothorax. On admission day #2, the air leak became very minimal and chest x-ray continued to show improvement. Catheter was removed by cardiothoracic surgery and repeat x-ray was reviewed by cardiothoracic surgery and the patient was noted to be cleared for discharge. She will be following with cardiothoracic surgery as an outpatient. Procedures: Thoravent placement by emergency room physician Patient Condition at Discharge: Fair Plan - Discharge Summary Discharge Rx Participant: Yes New Discharge Prescriptions: New Lidocaine 5% Patch [Lidoderm 5% Patch] 1 patch TOPICAL HS #7 patch HYDROcodone/APAP 5-325MG [Boyden 5-325] 1 each PO Q6HR PRN #15 tab PRN Reason: Pain Methocarbamol [Robaxin] 500 mg PO QID #30 tab Continue Budesonide/Formoterol Fumarate [Symbicort 160-4.5 Mcg Inhaler] 2 puff INHALATION RT-BID Sertraline [Zoloft] 25 mg PO DAILY Albuterol Inhaler [Ventolin Hfa Inhaler] 2 puff INHALATION RT-Q8H Lisinopril-Hctz 20-25 mg [Zestoretic 20-25] 1 tab PO DAILY Discharge Medication List Albuterol Inhaler [Ventolin Hfa Inhaler] 2 puff INHALATION RT-Q8H 12/03/18 [History] Budesonide/Formoterol Fumarate [Symbicort 160-4.5 Mcg Inhaler] 2 puff INHALATION RT-BID 12/03/18 [History] Lisinopril-Hctz 20-25 mg [Zestoretic 20-25] 1 tab PO DAILY 12/03/18 [History] Sertraline [Zoloft] 25 mg PO DAILY 12/03/18 [History] HYDROcodone/APAP 5-325MG [Boyden 5-325] 1 each PO Q6HR PRN #15 tab 12/05/18 [Rx] Lidocaine 5% Patch [Lidoderm 5% Patch] 1 patch TOPICAL HS #7 patch 12/05/18 [Rx] Methocarbamol [Robaxin] 500 mg PO QID #30 tab 12/05/18 [Rx] Follow up Appointment(s)/Referral(s): Rakan Sanders MD [STAFF PHYSICIAN] - 12/08/18 (Susie from Dr. Sanders's office will call with follow-up appointment for , 12/08/2017.) Neela Stewart MD [Primary Care Provider] - 1-2 days Ambulatory/Diagnostic Orders: XR chest 2V [RAD.AMB] Location: None Selected Patient Instructions/Handouts: Traumatic Pneumothorax (DC) Activity/Diet/Wound Care/Special Instructions: Use Incentive Spirometry 10x hourly Take pain medication as necessary Return to ER if any shortness of breath Discharge Disposition: HOME SELF-CARE
--- NOTE | 2018-12-05 18:30 | XR ---
EXAMINATION TYPE: XR chest 2V DATE OF EXAM: 12/05/2018 COMPARISON: Chest x-ray earlier today and older studies. HISTORY: Chest tube removal. TECHNIQUE: Frontal and lateral views of the chest are obtained. FINDINGS: There is no new or significant pneumothorax after right-sided chest tube removal. Some smith bcutaneous emphysema overlying right upper chest remains present. There is persistent patchy left bas ilar scarring and/or atelectasis. The cardiac silhouette size remains within normal limits. Displaced posterior right fifth rib fracture is again seen. IMPRESSION: No significant right-sided pneumothorax after Thoravent removal.
== END 2018-12-05 17:15 | disposition home or self-care (01) | DRG 200 ==
LOC: EC 10:57 → 4SSUR 16:49
PROVIDERS: ADMIT Surgery; ATTEND Surgery
PROC: 0W9930Z Drainage of Right Pleural Cavity with Drainage Device, Percutaneous Approach (ICD-10-PCS; principal; 2018-12-03)
DX: S27.0XXA Traumatic pneumothorax, initial encounter (principal); S22.31XA Fracture of one rib, right side, initial encounter for closed fracture; F32.9 Major depressive disorder, single episode, unspecified; I10 Essential (primary) hypertension; J45.909 Unspecified asthma, uncomplicated; M25.511 Pain in right shoulder; M54.6 Pain in thoracic spine; M25.521 Pain in right elbow; Z79.51 Long term (current) use of inhaled steroids; Z79.899 Other long term (current) drug therapy; Z82.49 Family history of ischemic heart disease and other diseases of the circulatory system; Z82.0 Family history of epilepsy and other diseases of the nervous system; Z88.8 Allergy status to other drugs, medicaments and biological substances; W17.89XA Other fall from one level to another, initial encounter; Y92.000 Kitchen of unspecified non-institutional (private) residence as the place of occurrence of the external cause
CPT/HCPCS: 32551; 71045; 71046; 80048; 80053; 85025; 85027; 94640; 94760; 96372; 96374; 96375; 99284

== ENCOUNTER → 2018-12-08 | Outpatient (CLI) | payer SELFPAY ==
--- NOTE | 2018-12-08 10:02 | XR ---
EXAMINATION TYPE: XR chest 2V DATE OF EXAM: 12/08/2018 COMPARISON: Chest x-ray 3 days ago. HISTORY: Pneumothorax progress study. TECHNIQUE: Frontal and lateral views of the chest are obtained. FINDINGS: There is interval improvement in subcutaneous emphysema over the right upper thorax. No rec urrent pneumothorax is identified. No new focal airspace opacity, pleural effusion, or pneumothorax is evident bilaterally. The cardiac silhouette size is within normal limits. Right lateral rib fractu res are redemonstrated. IMPRESSION: No recurrent right-sided pneumothorax.
== END | disposition home or self-care (01) ==
LOC: RADXRMAIN 09:34
PROVIDERS: ATTEND Nurse Practitioner Family
DX: J93.9 Pneumothorax, unspecified (principal)
CPT/HCPCS: 71046